=== PATIENT | female | born 1965 | race Caucasian/White ===

== ENCOUNTER → 2018-01-22 | Outpatient (CLI) | payer BC, OTHER ==
--- NOTE | 2018-01-22 11:54 | RAD ---
Right breast ultrasound, 01/22/2018: History: Nontender palpable lump A targeted ultrasound exam was performed at the 1:00 location in the area of clinical concern. Heterogeneous fibroglandular shadows are present. No cystic or solid breast nodule is seen. IMPRESSION: The targeted ultrasound exam of the right breast reveals no abnormality. Bilateral mammograms, 01/22/2018: History: Right breast lump CAD was utilized for this study. 2-D and 3-D tomosynthesis imaging was performed in CC and MLO projections. There are scattered fibroglandular densities in the breasts. No previous studies are available at this time for comparison purposes. No abnormality is seen in the area of clinical concern superior medially in the right breast. There is a small asymmetric opacity seen medially in the left breast breast, best visualized on CC ellyn image #37. No other suspicious breast densities are seen. Minimal benign type calcifications present. No suspicious microcalcifications are evident. Left breast ultrasound, 01/22/2018: A targeted ultrasound exam was performed of the medial aspect of left breast centered at the 9:00 location. Normal heterogeneous fibroglandular type shadows are present. No breast mass is evident. The appearance on the mammograms most likely represents an asymmetric patch of normal fibroglandular tissue. IMPRESSION: 1. Small asymmetric density medially in the left breast which probably represents a patch of normal fibroglandular tissue. Follow-up left mammography in 6 months and bilateral mammography at one year is suggested for confirmation. 2. No mammographic or sonographic abnormality was identified in the area of clinical concern superomedially in the right breast. Clinical surveillance is suggested. BI-RADS 3-probably benign findings
--- NOTE | 2018-01-22 13:41 | RAD ---
Abdominal aortic ultrasound, 01/22/2018: History: Back pain, smoker Duplex evaluation of the abdominal aorta was performed including grayscale, color-flow and spectral Doppler analysis. There are minimal scattered atherosclerotic plaques. The abdominal aorta is of normal caliber with no evidence of aneurysm. The common iliac arteries are unremarkable. IMPRESSION: Minimal atherosclerotic plaquing without evidence of aortic aneurysm.
== END | disposition home or self-care (01) ==
LOC: US 08:44
PROVIDERS: ATTEND Family Medicine
DX: N64.89 Other specified disorders of breast (principal); I70.0 Atherosclerosis of aorta
CPT/HCPCS: 76641; 76770; 77066

== ENCOUNTER 2018-03-28 08:15 | Emergency (ER) | payer OTHER ==
[~2018-03-28] VITALS: Ht 154.9 cm; Wt 59.0 kg
--- NOTE | 2018-03-28 08:48 | RAD ---
Right hand and wrist radiograph 03/28/2018 INDICATION: Right hand and wrist injury on counter. COMPARISON: None available. TECHNIQUE: 3 views of the right hand and 3 views of the right wrist are provided. FINDINGS: There is no acute fracture or dislocation. There is negative ulnar variance. Bone mineralization is within normal limits. Joint spaces are maintained. Regional soft tissues are within normal limits. There is no soft tissue gas or osseous erosion. IMPRESSION: No acute fracture or dislocation. Electronically signed by: Marlene Estrada MD (03/28/2018 8:45 AM) [facility]
[2018-03-28] MEDS ORDERED: NAPR-683 PO ×2 (08:56→09:25)
[2018-03-28] MEDS ORDERED: CYCL-331 PO ×2 (08:56→09:25)
--- NOTE | 2018-03-28 08:56 | PHYS DOC ---
Past History Past Medical History: Other Additional Past Medical Histor: chronic pain Adult General Chief Complaint Chief Complaint: HAND PROBLEM HPI HPI 52-year-old right-handed female patient states she tried to catch a falling plate with her right hand yesterday and felt pain in her hand that did not get better with home oxycodone as she takes for her chronic pain. Patient complaining of pain in fourth and fifth finger with radiation to her face that getting worse with movement. Patient rated her pain 10 over 10 and denies focal neuro deficit, fever and chills, history of hand pain. Review of Systems Review of Systems Constitutional: Denies fever or chills [] Eyes: Denies change in visual acuity, redness, or eye pain [] HENT: Denies nasal congestion or sore throat [] Respiratory: Denies cough or shortness of breath [] Cardiovascular: No additional information not addressed in HPI [] GI: Denies abdominal pain, nausea, vomiting, bloody stools or diarrhea [] : Denies dysuria or hematuria [] Musculoskeletal: Denies back pain, reports joint pain [] Integument: Denies rash or skin lesions [] Neurologic: Denies headache, focal weakness or sensory changes [] Endocrine: Denies polyuria or polydipsia [] All other systems were reviewed and found to be within normal limits, except as documented in this note. Current Medications Current Medications Current Medications Medications (Trade) Dose Ordered Sig/Rehan Start Time Stop Time Status Last Admin Dose Admin Naproxen (Naprosyn) 500 mg 1X ONCE 03/28/18 08:45 03/28/18 08:46 UNV Allergies Allergies Allergies Coded Allergies Type Severity Reaction Last Updated Verified No Known Drug Allergies 02/03/16 No Physical Exam Physical Exam Constitutional: Well nourished, mild distress, non-toxic appearance. [] HENT: Normocephalic, atraumatic Eyes: PERRLA, EOMI, conjunctiva normal, no discharge. [] Neck: Normal range of motion, no tenderness, supple, no stridor. [] Cardiovascular:Heart rate regular rhythm, no murmur [] Lungs & Thorax: Bilateral breath sounds clear to auscultation [] Extremities: Right hand without deformity or ecchymosis, mild contusion of hypotension on area, no neurovascular deficit, no edema, no cyanosis, exaggerates painful range of motion associated with patient anxiety Neurologic: Alert and oriented X 3, normal motor function, normal sensory function, no focal deficits noted. [] Psychologic: Affect anxious, mood normal. [] EKG EKG [] Radiology/Procedures Radiology/Procedures [][address] [address] IMAGING REPORT Signed PATIENT: ROSIBEL MAE ACCOUNT: [id number] : 1965 LOCATION: ER AGE: 52 SEX: F EXAM STATUS: REG ER ORD. PHYSICIAN: SOFIA MCCALLUM MD REASON: injury PROCEDURE: WRIST 3V RIGHT Right hand and wrist radiograph 03/28/2018 INDICATION: Right hand and wrist injury on counter. COMPARISON: None available. TECHNIQUE: 3 views of the right hand and 3 views of the right wrist are provided. FINDINGS: There is no acute fracture or dislocation. There is negative ulnar variance. Bone mineralization is within normal limits. Joint spaces are maintained. Regional soft tissues are within normal limits. There is no soft tissue gas or osseous erosion. IMPRESSION: No acute fracture or dislocation. Electronically signed by: Gely Marx MD (03/28/2018 8:45 AM) [facility] DICTATED AND SIGNED BY: GELY MARX MD DATE: 03/28/18 0842 CC: SOFIA MCCALLUM MD; JANICE HAISRTON MD ~ Course & Med Decision Making Course & Med Decision Making Pertinent Imaging studies reviewed. (See chart for details) []discharge: I've spoken with the patient and/or caregivers. I've explained the patient's condition, diagnosis and treatment plan based on information available to me at this time. I've answered the patient's and/or caregivers questions and addressed any concerns. The patient and/or caregivers have a good understanding the patient's diagnosis, condition and treatment plan as can be expected at this point. Vital signs have been stabilized. The patient's condition is stable for discharge from the emergency department. The patient will pursue further outpatient evaluation with her primary care provider or other designated consulting physician as outlined in the discharge instructions. Patient and/or caregivers are agreeable to this plan of care and follow-up instructions have been explained in detail. The patient and/or caregivers have received these instructions in written format and expressed understanding of these discharge instructions. The patient and her caregivers are aware that if any significant change in condition or worsening of symptoms should prompt him to immediately return to this of the closest emergency department. If an emergent department is not readily available I would encourage him to call 911. Mer Disclaimer Mer Disclaimer This electronic medical record was generated, in whole or in part, using a voice recognition dictation system. Departure Departure: Impression: Primary Impression: Strain of right hand Disposition: HOME, SELF-CARE (At 0925) Condition: IMPROVED Referrals: JANICE HAIRSTON MD (PCP) Patient Instructions: Arthralgia, Muscle Strain Additional Instructions: Apply ice on the affected area Follow-up with your primary care physician in 3-5 days Return to ER if not getting better Scripts Naproxen (NAPROSYN) 500 Mg Tablet 1 TAB PO BID, #20 TAB 1 Refill Prov: SOFIA MCCALLUM MD 03/28/18 Cyclobenzaprine Hcl (CYCLOBENZAPRINE HCL) 10 Mg Tablet 1 TAB PO TID, #21 TAB Prov: SOFIA MCCALLUM MD 03/28/18 SOFIA MCCALLUM MD Mar 28, 2018 08:56
[2018-03-28] MEDS ORDERED: NAPROXEN 500 MG TABLET PO ONE (09:00)
[2018-03-28 09:34] VITALS: BP 125/83
== END 2018-03-28 09:46 | disposition home or self-care (01) ==
LOC: ER 08:15
DX: S66.911A Strain of unspecified muscle, fascia and tendon at wrist and hand level, right hand, initial encounter (principal); G89.29 Other chronic pain; X50.9XXA Other and unspecified overexertion or strenuous movements or postures, initial encounter; Y93.89 Activity, other specified; Y99.8 Other external cause status; Y92.89 Other specified places as the place of occurrence of the external cause
CPT/HCPCS: 73110; 73130; 99284